=== PATIENT | female | born 1965 | race Caucasian/White ===

== ENCOUNTER → 2017-05-07 | Outpatient (CLI) | payer OTHER ==
[~2017-05-07] MED LIST: ALBU8.5H IH; CHERRY EXTRACT; FLAV100L PO; IBUP-1687 PO; IBUP1TAB90 PO; LORA-802 PO; PSEU120T68 PO
--- NOTE | 2017-05-07 13:45 | RADIOLOGY IMAGING REPORT ---
[place] [facility] [place] Shanti Barker : 1965 MR: [id number] V: [id number] EXAM DATE: ORDERING PHYSICIAN: DARRION ORTIZ TECHNOLOGIST: [place] [facility] [place] Patient: Shanti Barker : 1965 Visit/Account:[id number] Date of Sevice: 05/07/2017 DEXA Scan Clinical history: Ovarian failure. Comparison: DEXA scan from 12/25/2014. LUMBAR SPINE: The bone mineral density (BMD) measured from L1-L4 correlates with a Z-score of -0.3 and a T-score of -0.7 which is Normal as defined by the World Health Organization. The corresponding risk of fractur e in the lumbar spine is 1-2 times increased compared with a young adult reference population. This value has decrease by 10.6 % since the prior study. More than 5% change is considered significant. HIP: Bone mineral density (BMD) measured in the LEFT total hip region correlates with a Z-score 0.2 and a T-score of -0.1 which is normal as defined by the World Health Organization. The corresponding risk of fracture in the hip is Not i ncreased compared to a young adult reference population. This value has decrease by 5.2 % since the p rior study. More than 5% change is considered significant. T score left femoral neck -0.7 Bone mineral density (BMD) measured in the Femoral Neck region measures 0.943 g/cm?. IMPRESSION: 1. Lumbar spine: Normal. There has been 10.6% decrease in the bone mineral density since the previo us exam. 2. Left Total Hip: Normal. There has been 5.2% decrease in the bone mineral density since the previ ous exam. 3. Femoral Neck: Bone Mineral Density is 0.943 g/cm? The next DEXA scan of this patient should include the following sites: L1-L4 and the left hip. FRAX? WHO Fracture Risk Assessment Tool link: <http://www.shef.ac.uk/FRAX/tool.jsp?locationValue=9> PLEASE NOTE: 1) The World Health Organization defines low BMD as follows: T-score Normal > -1 Osteopenia < -1 and > -2.5 Osteoporosis < -2.5 without fractures Established osteoporosis < -2.5 with fractures 2) In general, you may wish to consider: Diagnosis Treatment Follow-up DEXA Normal BMD Prevention 2-3 years Osteopenia Prevention/therapy 1-2 years Osteoporosis Therapy Yearly 3) Fracture risk estimated from the T-score is more accurate for vertebral fractures (often spontane ous) than for hip fractures. Report Dictated By: Megan Burkett MD at 05/07/2017 1:38 PM Report E-Signed By: Megan Burkett MD at 05/07/2017 1:40 PM WSN:[email or web address]
--- NOTE | 2017-05-07 13:55 | RADIOLOGY IMAGING REPORT ---
FACILITY: [facility] - [place] PATIENT NAME: JETT MEIER : [id number] MR: [id number] V: [id number] EXAM DATE: ORDERING PHYSICIAN: DARRION ORTIZ TECHNOLOGIST: Brooke Duarte PROCEDURE:BILATERAL DIGITAL SCREENING MAMMOGRAM WITH CAD ASSISTED INTERPRETATION & 3D TOMOSYNTHESIS COMPARISON:Prior mammograms 12/25/14, 08/05/12, 08/21/10. INDICATIONS:SCREENING FINDINGS: A small amount of fibroglandular tissue is seen throughout the breasts. The parenchymal pattern has remained stable allowing for difference in mammographic technique & patient positioning. There is no evidence of malignant appearing mass, malignant appearing calcifications or other secondary sign of malignancy in either breast. DIAGNOSTIC CATEGORY 1--NEGATIVE. RECOMMENDATIONS: ROUTINE MAMMOGRAM AND CLINICAL EVALUATION. IMPRESSION: BIRADS 1: Negative No significant abnormality is seen Dictated by: Megan Burkett M.D. on 05/07/2017 at 13:49 Transcribed by: LIVIA on 05/07/2017 at 13:54 Approved by: Megan Burkett M.D. on 05/07/2017 at 13:54 [facility]
== END ==
LOC: MAMO 04:05
PROVIDERS: ATTEND Nurse Practitioner Family
DX: Z13.820 Encounter for screening for osteoporosis (principal); Z12.31 Encounter for screening mammogram for malignant neoplasm of breast; E28.39 Other primary ovarian failure
CPT/HCPCS: 77063; 77067; 77080

== ENCOUNTER → 2018-08-05 | Outpatient (CLI) | payer OTHER ==
--- NOTE | 2018-08-10 09:40 | RADIOLOGY IMAGING REPORT ---
FACILITY: [facility] - [place] PATIENT NAME: JETT MEIER : [id number] MR: [id number] V: [id number] EXAM DATE: ORDERING PHYSICIAN: DARRION ORTIZ TECHNOLOGIST: Shameka Schneider PROCEDURE: BILATERAL DIGITAL SCREENING MAMMOGRAM WITH CAD ASSISTED INTERPRETATION & 3D TOMOSYNTHESIS REASON FOR STUDY: Screening FAMILY HISTORY OF BREAST CANCER: None BREAST PROCEDURES/TREATMENTS: None COMPARISON: 05/07/17, 12/25/14, 08/05/12 VIEWS OBTAINED: Bilateral 2D & 3D full field CC & MLO BREAST DENSITY: The breasts are heterogeneously dense which can obscure small masses. MAMMOGRAM FINDINGS: The parenchymal pattern has remained stable allowing for difference in mammographic technique & patient positioning. IMPRESSION: BIRADS 1: Negative. DIAGNOSTIC CATEGORY 1--NEGATIVE. RECOMMENDATIONS: ROUTINE MAMMOGRAM AND CLINICAL EVALUATION. Dictated by: Megan Burkett M.D. on 08/09/2018 at 12:46 Transcribed by: MARIA EUGENIA on 08/09/2018 at 13:27 Approved by: Megan Burkett M.D. on 08/10/2018 at 9:39 [facility]
== END ==
LOC: MAMO 01:29
PROVIDERS: ATTEND Nurse Practitioner Family
DX: Z12.31 Encounter for screening mammogram for malignant neoplasm of breast (principal)
CPT/HCPCS: 77063; 77067